=== PATIENT | male | born 1945 | race Caucasian/White ===

== ENCOUNTER 2019-10-15 08:50 | Emergency (ER) | payer OTHER, SELFPAY ==
[2019-10-15 08:54] VITALS: BP 163/67; PULSE 101; RESP 16; TEMP 36.9; O2SAT 95; BMI 22.9
--- NOTE | 2019-10-15 08:57 | ED.EYEPROB ---
HPI - Eye Problem General Chief complaint: Eye Problems Stated complaint: LEFT EYE INFECTION Time Seen by Provider: 10/15/19 08:53 Source: patient and family Mode of arrival: Ambulatory Limitations: no limitations History of Present Illness HPI Narrative: 74-year-old male nonsmoker with history of macular degeneration presents with his for the evaluation of a painful left eye in the absence of any injury or known exposure. Yesterday the patient woke up and noted that it his left eye hurt and felt dry. He states bright lights made the pain worse and that he also had some redness and pain of the skin of his face below his left eye. He denies any injury or foreign body exposure. He denies any drainage or exudate. He denies exposure to UV light. He denies the use of contacts. Today he no longer has any pain with the skin on his face, as mentioned above but he states he feels like he is looking through a film and the vision is blurred from his left eye. Patient denies any floaters, flashers or visual field cuts MD chief complaint: eye pain, eye redness and vision change Onset (ago): day(s) Onset description: awoke with symptoms Duration: constant Location: left eye Eye Symptoms: redness Related Data Home Medications Medication Instructions Recorded Confirmed [ZEITIA] 10 mg PO Q DAY #0 09/06/11 Previous Rx's Medication Instructions Recorded cyclopentolate 1 drop EYE-LEFT TID #5 ml 10/15/19 prednisolone acetate [Pred Forte] 1 drop EYE-LEFT Q2H #15 ml 10/15/19 Allergies Allergy/AdvReac Type Severity Reaction Status Date / Time terbinafine [From LAMISIL] Allergy Intermediate rash where Verified 10/15/19 09:03 applied Review of Systems Constitutional Constitutional: Denies chills, Denies fatigue, Denies fever(s), Denies frequent falls, Denies lethargy and Denies weakness Eyes Eyes: Reports blurry vision, Reports change in vision, Denies eye discharge, Denies irritation, Denies loss of vision and Reports eye pain ENT Ears, Nose, Mouth, and Throat: Denies change in voice, Denies dizziness, Denies neck pain, Denies sore throat and Denies throat swelling Cardiovascular Cardiovascular: Denies chest pain, Denies irregular heart rhythm, Denies lightheadedness, Denies palpitations, Denies dyspnea, Denies dyspnea on exertion and Denies orthopnea Respiratory Respiratory: Denies cough, Denies dyspnea, Denies dyspnea on exertion and Denies wheezing Gastrointestinal Gastrointestinal: Denies abdominal pain, Denies change in bowel habits, Denies diarrhea, Denies nausea and Denies vomiting Genitourinary Genitourinary: Denies hematuria, Denies flank pain, Denies urinary incontinence and Denies urinary urgency Musculoskeletal Musculoskeletal: Denies back pain, Denies muscle weakness, Denies neck pain, Denies numbness and Denies tingling Integumentary/Breasts Skin/Breast: Denies pruritus, Denies erythema, Denies rash and Denies wounds Neurologic Neurologic: Denies behavioral changes, Denies confusion, Denies dizziness, Denies frequent falls, Denies loss of vision, Denies numbness, Denies tingling and Denies weakness Psychiatric Psychiatric: Denies anxiety, Denies behavioral changes, Denies confusion, Denies depression, Denies homicidal ideation and Denies suicidal ideation Endocrine Endocrine: Denies fatigue, Denies flushing and Denies palpitations Hematologic/Lymphatic Hematologic/Lymphatic: Denies easy bruising Allergic/Immunologic Allergic/Immunologic: Denies urticaria, Denies throat swelling and Denies wheezing Patient History Social History Smoking Status: Never smoker Smoking Status: Never smoker Substance Use Type: does not use Exam Narrative Exam Narrative: GEN: AOx3 and in mild distress EYES: Pupils are equal, round, and reactive to light and accommodation. Extraoccular muscles are intact bilaterally. Mild scleral injection of left eye, no exudate. Viewed under Wood's lamp and no foreign body noted, upper lid everted. Patient had moderate, but not complete, improvement with proparacaine. There was no uptake with fluorescein under a Brown lamp. I visualized under slit lamp and no obvious cell and flare noted in the anterior chamber but an atypical appearing vertical lesion running from the 1 o'clock to 5 o'clock position in the left eye noted. No significant findings on funduscopic exam. Pressure in left eye with King-Pen noted to be 16 CHEST: Lungs are clear to auscultation bilaterally and free of wheezes, rales, or rhonchi. Heart rate is regular rhythm, there are no murmurs, clicks, rubs, or gallops. There is no chest wall tenderness. ABD: Abdomen is soft and nontender. There is no guarding or rebound. Bowel sounds are normal in all 4 quadrants. There is no mass or organomegaly. EXT: Full painless ROM of all extremities with no loss of sensation or strength. SKIN: Warm, pink, and dry. No erythema or rash Initial Vital Signs Initial Vital Signs: Vital Signs Temperature 98.4 F 10/15/19 08:54 Pulse Rate 101 H 10/15/19 08:54 Respiratory Rate 16 10/15/19 08:54 Blood Pressure 163/67 H 10/15/19 08:54 Pulse Oximetry 95 10/15/19 08:54 Course Orders Ordered: Discontinued Medications Proparacaine HCl (Parcaine 0.5% Ophth Meena) 1 drops EYE-LEFT NOW ONE Stop: 10/15/19 09:39 Last Admin: 10/15/19 09:55 Dose: 1 drop Documented by: DYLON Consultations Consultation #1: I have discussed the case with the on-call provider at his eye doctor and we sure the opinion that uveitis must be considered. She recommends Pred Forte every 2 hours and cyclopentolate 3 times daily and to call their office tomorrow morning at 8:30 a.m. when they open to be seen promptly. Vital Signs Vital signs: Vital Signs - 8 hr 10/15/19 08:54 10/15/19 11:09 Temperature 98.4 F Pulse Rate 101 H 88 Respiratory Rate 16 16 Blood Pressure 163/67 H Blood Pressure [Left Arm] 146/82 H Pulse Oximetry 95 99 MDM - Eye Problem MDM Narrative Medical decision making narrative: Multiple etiologies of the patient's symptoms including conjunctivitis, acute angle closure glaucoma, corneal abrasion, uveitis, and others considered. Uveitis considered likely given pain, vision change, lack of findings under UV lamp, lack of complete resolution with proparacaine as well as worsening symptoms the with light exposure. Patient and understand diagnosis and plan and are in complete agreement. They have had questions answered to their apparent satisfaction and understand return precautions Discharge Plan Departure Patient Disposition: Home Clinical Impression: Uveitis of left eye Discharge Date/Time: 10/15/19 11:20 Instructions: DI for Anterior Uveitis Activity Restrictions/Additional Instructions: *You have been diagnosed with [ light sensitivity, blurred vision, and eye pain likely from Uveitis ] *What to do: *Take medications as directed: your prescriptions have been sent to [facility] at your request *Follow up with your eye doctor at [facility] TOMORROW. Call at [phone] *Return to ER if you should have any new, worsening or concerning symptoms, such as [ worsening pain, vision change or other bothersome symptoms] Prescriptions: New prednisolone acetate [Pred Forte] 1 % drops,suspension 1 drop EYE-LEFT Q2H Qty: 15 RF: 0 cyclopentolate 1 % drops 1 drop EYE-LEFT TID Qty: 5 RF: 0 No Action [ZEITIA] 10 mg PO Q DAY Qty: 0 RF: 0 Referrals: Eddie Grant MD [Primary Care Provider] - Ashley Nelson MD [Non-Staff] -
--- NOTE | 2019-10-15 09:12 | PC.NURSE ---
Patient reports that eye sight worse and vision was blurry
[2019-10-15] MEDS: PROPARACAINE 0.5% OPHTH SOL 1 DROPS EYE-LEFT (09:55)
[2019-10-15 11:09] VITALS: BP 146/82; PULSE 88; RESP 16; O2SAT 99
== END 2019-10-15 11:20 | disposition home or self-care (01) ==
PROVIDERS: Emergency Provider Emergency Medicine; Family Provider Family Medicine; PCP Family Medicine
DX: H20.9 Unspecified iridocyclitis (principal)
CPT/HCPCS: 99281; 99282

== ENCOUNTER → 2022-05-19 07:10 | Outpatient (CLI) | payer OTHER, SELFPAY ==
[2022-05-19 11:38] LABS: COVID19 -Nasal RAPID Negative (Negative)
== END ==
PROVIDERS: Family Provider Family Medicine; PCP Family Medicine; Visit Provider Surgery
DX: Z01.812 Encounter for preprocedural laboratory examination (principal); Z20.822 Contact with and (suspected) exposure to COVID-19
CPT/HCPCS: 87635; C9803

== ENCOUNTER 2022-05-20 11:02 | Day surgery (SDC) | payer OTHER, SELFPAY ==
[2022-05-20] MEDS: LACTATED RINGERS 1,000 ML 84 ML IV (11:00)
[2022-05-20 11:29] VITALS: BP 145/81; PULSE 100; RESP 16; TEMP 36.3; O2SAT 98; BMI 23.1
--- NOTE | 2022-05-20 12:05 | PM.HP.1 ---
History of Present Illness History of Present Illness Date Patient Seen: 05/20/22 Time Patient Seen: 12:09 Chief complaint: SDC Narrative: Colon cancer screening. Last scope 10 years. no family history Patient History Family & Social History Social History: household members spouse Tobacco & Substance use: Smoking Status Never smoker alcohol intake never Substance Use Type does not use Meds Home Medications and Allergies Home Medications Medication Instructions Recorded Confirmed Type [ZEITIA] 10 mg PO Q DAY ##0 09/06/11 History cyclopentolate 1 % eye drops 1 drop EYE-LEFT TID #5 mL 10/15/19 Rx prednisolone acetate 1 % eye 1 drop EYE-LEFT Q2H #15 mL 10/15/19 Rx drops,suspension (Pred Forte) ezetimibe 10 mg tablet tab 05/20/22 History Allergies Allergy/AdvReac Type Severity Reaction Status Date / Time terbinafine [From LAMISIL] Allergy Intermediate Rash Verified 05/20/22 11:28 Review of Systems Review of Systems ROS: Yes All systems reviewed with the patient and are negative except as otherwise documented Exam Vital Signs (past 8 hours): - 05/20/22 11:29 Temperature 97.4 F L Pulse Rate 100 H Respiratory Rate 16 Blood Pressure 145/81 H Pulse Oximetry 98 Oxygen Delivery Method Room Air Oxygen Delivery Method Room Air Const General: cooperative and comfortable Nutritional Appearance: average body habitus Orientation: oriented x3 HENMT Head: normal to inspection, normocephalic and atraumatic Eyes General: appearance normal, both eyes and all related structures Sclera: sclerae normal Neck Neck: trachea midline Chest Chest: normal inspection of the chest Resp Effort & Inspection: normal respiratory effort and able to speak in complete sentences Cardio Rate: regular rate Rhythm: regular rhythm GI Inspection: normal to inspection Palpation: soft Skin General: atrophy Hair: brittle Neuro General: patient alert, patient awake and patient oriented x3 Cognition: normal cognition Psych Appearance: grossly normal Mental Status: mental status grossly normal Affect: normal affect Judgment: judgment good Assessment & Plan Assessment & Plan narrative: colon cancer screening using colonoscopy and moderate sedation COVID-19 COVID-19 status: Negative Time Spent With Patient Time with patient: less than 30 minutes Critical Care time: I spent a total of [] minutes of critical care time on this patient's care today; this time is exclusive of procedural time.
[2022-05-20] MEDS: fentaNYL 250 MCG/5 ML INJ 75 MCG IV (12:24)
[2022-05-20] MEDS: MIDAZOLAM 5 MG/5 ML VIAL 4 MG IV (12:24)
--- NOTE | 2022-05-20 12:35 | PM.OP.COLON ---
Operative Date/Time/Diagnoses Date of procedure: 05/20/22 Time of procedure: 12:35 Pre-op diagnosis: Colon cancer screening Post-op diagnosis: same Procedure & Clinicians Study performed: Colonoscopy with moderate sedation Same procedure as scheduled: Yes Indications: Colon cancer screening Surgeon: Holly Hopkins Procedure Notes SCOAP/Timeout: Done Procedure in detail: Preop diagnosis: Colon cancer screening Postop diagnosis: Same Operative procedure: Colonoscopy with moderate sedation Findings: Normal colonoscopy with the exception of diverticulitis in the sigmoid colon. Surgeon: Ashia Hopkins MD Anesthetic: Versed 4 mg, fentanyl 75 mcg Procedure: Patient placed in lateral position. Rectal exam performed showing normal tone no masses. Colonoscope inserted into the rectum and advanced to the ileocecal valve with minimal difficulty. Insufflation and extraction of the scope and the above findings. Retroflex was included in the rectum. Impression: No polyps, sigmoid diverticulosis of moderate proportions. Plan: Repeat colonoscopy in 10 years unless otherwise indicated by change in clinical condition Sedation minutes: 24 Findings: divertiulosis Specimen(s): none sent Complications: none Impression: No polyps, sigmoid diverticulosis. Post-procedure Recommendations: Colonoscopy in 10 years Follow up: as needed Disposition: PACU
[2022-05-20 12:38] VITALS: BP 138/75; PULSE 87; RESP 16; TEMP 36.3; O2SAT 98
[2022-05-20 12:43] VITALS: BP 131/71; PULSE 91; RESP 16; O2SAT 98
[2022-05-20 12:48] VITALS: BP 116/70; PULSE 89; RESP 16; O2SAT 99
[2022-05-20 12:52] VITALS: BP 134/66; PULSE 85; RESP 16; TEMP 36.2; O2SAT 100
[2022-05-20 12:59] VITALS: BP 143/75; PULSE 91; RESP 16; O2SAT 99
== END 2022-05-20 13:05 | disposition home or self-care (01) ==
PROVIDERS: Family Provider Family Medicine; PCP Family Medicine; Referring Provider Surgery; Visit Provider Surgery
PROC: 0DJD8ZZ Inspection of Lower Intestinal Tract, Via Natural or Artificial Opening Endoscopic (ICD-10-PCS; CPT 45378; principal; 2022-05-20 13:00)
DX: Z12.11 Encounter for screening for malignant neoplasm of colon (principal); K57.30 Diverticulosis of large intestine without perforation or abscess without bleeding
CPT/HCPCS: G0121; 99152; 99153; J2250; J3010

== ENCOUNTER → 2024-05-16 12:33 | Outpatient (CLI) | payer MEDICARE, SELFPAY ==
[2024-05-16 14:20] LABS: Add Manual Diff / Slide Review NO; Basophils Absolute Auto 100 /uL (0-100); Eosinophils Absolute Auto 0 /uL (0-450); Eosinophils Percent Auto 0.2 % (2-4); Hematocrit 43.3 % (41-53); Hemoglobin 14.6 g/dL (13.5-17.5); Lymphocytes Absolute Auto 800 /uL (1100-4500); Lymphocytes Percent Auto 15.3 % (25-40); Mean Corpuscular HGB Conc 33.7 % (30-36); Mean Corpuscular Hemoglobin 33.4 PG (26-34); Mean Corpuscular Volume 99.2 fL (80-100); Monocytes Absolute Auto 600 /uL (0-900); Monocytes Percent Auto 10.8 % (3-14); Neutrophils Absolute Auto 3800 /uL (1500-7000); Neutrophils Percent Auto 72.7 % (50-75); Platelet Count 229 X10^3/uL (150-400); Red Blood Cell Count 4.37 X10^6/uL (4.5-5.9); Red Cell Distribution Width 13.6 % (11.6-14.8); White Blood Cell Count 5.2 X10^3/uL (4.5-11.0)
[2024-05-16 14:53] LABS: Alanine Aminotransferase 28 IU/L (<50); Albumin 4.1 g/dL (3.5-5.0); Albumin Globulin Ratio 1.3 (1.0-2.8); Alkaline Phosphatase 89 U/L (38-126); Aspartate Aminotransferase 36 IU/L (17-59); BUN Creatinine Ratio 20.5 (6-22); Bilirubin Total 1.2 mg/dL (0.2-1.3); Blood Urea Nitrogen 16 mg/dL (9-20); Calcium 8.9 mg/dL (8.4-10.2); Carbon Dioxide 25 mmol/L (22-32); Chloride 105 mmol/L (98-107); Cholesterol 199 mg/dL (140-199); Estimated Glomerular Filt Rate > 60 mL/min (>60); Globulin 3.1 g/dL (1.7-4.1); Glucose 90 mg/dL (80-110); HDL Cholesterol 56 mg/dL (40-60); HEMOLYSIS < 15 (0-50); LDL Cholesterol Calculated 115 mg/dL (<100); Potassium 4.5 mmol/L (3.4-5.1); Sodium 138 mmol/L (137-145); Total Protein 7.2 g/dL (6.3-8.2); Triglycerides 139 mg/dL (35-150)
== END ==
PROVIDERS: Family Provider Family Medicine; PCP Family Medicine; Referring Provider Family Medicine; Visit Provider Family Medicine
DX: E78.5 Hyperlipidemia, unspecified (principal)
CPT/HCPCS: 80053; 80061; 85025

== ENCOUNTER → 2025-07-05 08:27 | Outpatient (CLI) | payer MEDICARE, SELFPAY ==
[2025-07-05 08:49] LABS: Add Manual Diff / Slide Review NO; Hematocrit 47.5 % (41-53); Hemoglobin 16.1 g/dL (13.5-17.5); Lymphocytes Absolute Auto 1500 /uL (1100-4500); Mean Corpuscular HGB Conc 33.8 % (30-36); Mean Corpuscular Hemoglobin 33.5 PG (26-34); Mean Corpuscular Volume 99.0 fL (80-100); Platelet Count 236 X10^3/uL (150-400)
[2025-07-05 08:59] LABS: INR 1.0 (0.9-1.3); Prothrombin Time 11.6 SECONDS (9.4-12.5)
[2025-07-05 09:33] LABS: Alanine Aminotransferase 30 IU/L (<50); Albumin 4.5 g/dL (3.5-5.0); Albumin Globulin Ratio 1.4 (1.0-2.8); Alkaline Phosphatase 96 U/L (38-126); Blood Urea Nitrogen 19 mg/dL (9-20); Calcium 9.2 mg/dL (8.4-10.2); Carbon Dioxide 26 mmol/L (22-32); Chloride 104 mmol/L (98-107); Cholesterol 228 mg/dL (140-199); Estimated Glomerular Filt Rate > 60 mL/min (>60); Globulin 3.2 g/dL (1.7-4.1); Glucose 109 mg/dL (70-99); HDL Cholesterol 64 mg/dL (40-60); HEMOLYSIS < 15 (0-50); Potassium 4.0 mmol/L (3.4-5.1); Sodium 140 mmol/L (137-145); Total Protein 7.7 g/dL (6.3-8.2); Triglycerides 150 mg/dL (35-150)
== END ==
PROVIDERS: Family Provider Family Medicine; PCP Family Medicine; Referring Provider Family Medicine; Visit Provider Family Medicine
DX: E78.5 Hyperlipidemia, unspecified (principal); R04.2 Hemoptysis
CPT/HCPCS: 36415; 80053; 80061; 85025; 85610; 85651; 86140